=== PATIENT | male | born 1975 | race Caucasian/White ===

== ENCOUNTER 2017-02-20 09:41 | Emergency (ER) | payer BC ==
[2017-02-20 10:07] VITALS: BP 148/84
--- NOTE | 2017-02-20 11:10 | UC ---
Respiratory Complaint HPI - HPI Summary HPI Summary: 41 yo male with cough/wheeze/sore throat x 7 days using rescue inhaler - History of Current Complaint Chief Complaint: UCRespiratory Stated Complaint: COUGH,SORE THROAT,SINUS Time Seen by Provider: 02/20/17 10:57 Hx Obtained From: Patient Onset/Duration: Gradual Onset, Lasting Days Timing: Constant Severity Initially: Mild Severity Currently: Moderate Pain Intensity: 2 Pain Scale Used: 0-10 Numeric Character: Cough: Productive Aggravating Factors: Exertion, Deep Breaths Alleviating Factors: Bronchodilator Associated Signs And Symptoms: Positive: Wheezing, Nasal Congestion, Sinus Discomfort - Allergies/Home Medications Allergies/Adverse Reactions: Allergies Allergy/AdvReac Type Severity Reaction Status Date / Time No Known Allergies Allergy Verified 02/20/17 10:06 PMH/Surg Hx/FS Hx/Imm Hx Previously Healthy: Yes Respiratory History Of: Reports: Asthma - Surgical History Surgical History: None Surgery Procedure, Year, and Place: adenoids and wisdom teeth - Family History Known Family History: Positive: Hypertension, Respiratory Disease - Social History Alcohol Use: Occasionally Substance Use Type: None Smoking Status (MU): Never Smoked Tobacco Review of Systems Constitutional: Negative Skin: Negative Eyes: Negative ENT: Sore Throat, Nasal Discharge Respiratory: Cough Cardiovascular: Negative Gastrointestinal: Negative Genitourinary: Negative Motor: Negative Neurovascular: Negative Musculoskeletal: Negative Neurological: Negative Psychological: Negative All Other Systems Reviewed And Are Negative: Yes Physical Exam Triage Information Reviewed: Yes Appearance: Well-Appearing, No Pain Distress, Well-Nourished Vital Signs: Initial Vital Signs Temp 98.2 F 02/20/17 10:02 Pulse 74 02/20/17 10:02 Resp 16 02/20/17 10:02 BP 148/84 02/20/17 10:02 Pulse Ox 99 02/20/17 10:02 Vital Signs Reviewed: Yes Eyes: Positive: Conjunctiva Clear ENT: Positive: Pharyngeal erythema, Nasal congestion, TM bulging, Other: - UVULAR EDEMA. Negative: Tonsillar swelling, Tonsillar exudate, Trismus, Muffled /hoarse voice Dental Exam: Normal, Other Neck: Positive: Supple, Nontender, No Lymphadenopathy Respiratory: Positive: No respiratory distress, No accessory muscle use, Wheezing Cardiovascular: Positive: RRR, No Murmur Musculoskeletal: Positive: Strength Intact, ROM Intact Neurological: Positive: Alert Psychological Exam: Normal Skin Exam: Normal Diagnostic Evaluation - Laboratory O2 Sat by Pulse Oximetry: 99 - normal/not hypoxic Respiratory Course/Dx - Differential Dx/Diagnosis Provider Diagnoses: BROCNOSPASM. BRONCHITIS. UVULAR EDEMA Discharge - Discharge Plan Condition: Stable Disposition: HOME Prescriptions: Azithromycin TAB* [Zithromax TAB*] 250 mg PO DAILY #6 tab Prednisone [Deltasone] 40 mg PO DAILY #10 tab Patient Education Materials: Acute Bronchitis (ED), Bronchospasm (ED) Forms: *Work Release Referrals: Stef Hernández DO [Primary Care Provider] - 4 Days (if not completely better) Additional Instructions: use your inhaler 2 puffs 4x day for 5 days then as needed
== END 2017-02-20 11:18 | disposition home or self-care (01) ==
LOC: UCCORT 09:41
DX: J20.9 Acute bronchitis, unspecified (principal); K13.79 Other lesions of oral mucosa; J45.909 Unspecified asthma, uncomplicated
CPT/HCPCS: 99212; G0463

== ENCOUNTER 2018-05-04 18:42 | Emergency (ER) | payer BC, OTHER ==
[2018-05-04 18:57] VITALS: BP 137/85
--- NOTE | 2018-05-04 19:16 | UC ---
Knee Pain HPI - HPI Summary HPI Summary: got a deep wound to his R knee at 12 yo but did heal. Over the past year he has been having pain to the front of his knee that is now worsening. There is also swelling. No acute injury. - History of Current Complaint Chief Complaint: UCLowerExtremity Stated Complaint: RT KNEE PAIN Time Seen by Provider: 05/04/18 19:00 Hx Obtained From: Patient Onset/Duration: Gradual Onset Pain Intensity: 7 Aggravating Factor(s): Other - bending Alleviating Factor(s): Nothing Associated Signs And Symptoms: Positive: Swelling. Negative: Redness, Fever, Weakness, Numbness, Tingling Able to Bear Weight: Yes - Risk Factors Septic Arthritis Risk Factor: Negative - Allergies/Home Medications Allergies/Adverse Reactions: Allergies Allergy/AdvReac Type Severity Reaction Status Date / Time No Known Allergies Allergy Verified 05/04/18 18:57 Home Medications: Home Medications diPHENhydraMINE PO* [Benadryl PO 25 MG TAB*] 25 mg PO TID PRN 05/04/18 [History Confirmed 05/04/18] PMH/Surg Hx/FS Hx/Imm Hx - Additional Past Medical History Additional PMH: allergies Respiratory History: Asthma - Surgical History Surgical History: Yes Surgery Procedure, Year, and Place: adenoids and wisdom teeth - Family History Known Family History: Positive: Hypertension, Respiratory Disease - Social History Occupation: Employed Full-time Alcohol Use: Daily Alcohol Amount: 1-2 beers nightly Substance Use Type: None Smoking Status (MU): Never Smoked Tobacco - Immunization History Vaccination Up to Date: Yes Review of Systems Constitutional: Negative Skin: Negative Eyes: Negative ENT: Negative Respiratory: Negative Cardiovascular: Negative Gastrointestinal: Negative Genitourinary: Negative Motor: Negative Neurovascular: Negative Musculoskeletal: Other: - R knee pain Neurological: Negative Psychological: Negative Is Patient Immunocompromised?: No All Other Systems Reviewed And Are Negative: Yes Physical Exam Triage Information Reviewed: Yes Appearance: Well-Appearing Vital Signs: Initial Vital Signs Temp 97.9 F 05/04/18 18:52 Pulse 84 05/04/18 18:52 Resp 19 05/04/18 18:52 BP 137/85 05/04/18 18:52 Pulse Ox 99 05/04/18 18:52 Vital Signs Reviewed: Yes Eyes: Positive: Conjunctiva Clear ENT: Positive: Normal ENT inspection Neck: Positive: Supple, Nontender, No Lymphadenopathy Respiratory: Positive: Lungs clear, Normal breath sounds Cardiovascular: Positive: RRR, No Murmur Abdomen Description: Positive: Nontender, No Organomegaly, Soft Bowel Sounds: Positive: Present Musculoskeletal: Positive: Other: - RLE: hip, ankle and foot are non tender and atraumatic. R anterior knee with scars and mild swelling. Mildly tender over superior scar and medial joint line. No joint laxity. RLE has full s/v/m function. Neurological: Positive: Alert Psychological: Positive: Age Appropriate Behavior Skin Exam: Normal Diagnostics - Radiology No standard instances Radiology Interpretation Completed By: Radiologist - IMPRESSION: Small suprapatellar joint effusion in this otherwise radiographically normal- appearing right knee. Knee Pain Course/Dx - Course Course Of Treatment: NO CONCERN FOR FX OR INFECTION - Differential Dx/Diagnosis Provider Diagnoses: R SUPRAPATELLAR EFFUSION. R KNEE PAIN Discharge - Sign-Out/Discharge Documenting (check all that apply): Patient Departure - Discharge Plan Condition: Stable Disposition: HOME Prescriptions: Naproxen [Naprosyn 500 mg tab] 500 mg PO BID #10 tablet Patient Education Materials: Knee Pain (ED) Referrals: Reese Barillas MD [Medical Doctor] - As Soon As Possible Stef Hernández DO [Primary Care Provider] - If Needed Additional Instructions: WEAR LADARIUS DURING DAY AND REMOVE AT BEDTIME - Billing Disposition and Condition Condition: STABLE Disposition: Home
--- NOTE | 2018-05-04 19:37 | RAD ---
INDICATION: Pain and swelling x1 month COMPARISON: None TECHNIQUE: 4 view radiograph of the right knee. FINDINGS: The visualized bones are well-corticated and properly aligned. The joint spaces are properly maintained. There is a small suprapatellar joint effusion. There is no acute fracture, dislocation or other focal bony abnormality. IMPRESSION: Small suprapatellar joint effusion in this otherwise radiographically normal-appearing right knee. If the patient's symptoms persist, follow-up imaging is recommended.
== END 2018-05-04 20:07 | disposition home or self-care (01) ==
LOC: UCCORT 18:42
DX: M25.561 Pain in right knee (principal); M25.461 Effusion, right knee; J45.909 Unspecified asthma, uncomplicated; Z87.828 Personal history of other (healed) physical injury and trauma
CPT/HCPCS: 99212; G0463

== ENCOUNTER 2018-12-26 21:21 | Emergency (ER) | payer OTHER ==
[2018-12-26 21:44] VITALS: BP 163/80
[2018-12-26] MEDS ORDERED: Clindamycin CAP* 150 MG PO ONE (21:52)
--- NOTE | 2018-12-26 21:59 | UC ---
[facility] Dental HPI - HPI Summary HPI Summary: 43 yo male with sore throat x 1-2 days left lower tooth ache x 3 days swollen left cerv nodes today no f/c no n/v/d no hx DM or heart murmur - History of Current Complaint Chief Complaint: UCDentalProblem Stated Complaint: DENTAL CONCERN Time Seen by Provider: 12/26/18 21:24 Hx Obtained From: Patient Onset/Duration: Gradual Onset Severity: Mild Pain Intensity: 8 Pain Scale Used: 0-10 Numeric Aggravating Factor(s): Heat Alleviating Factor(s): OTC Meds Dental: 1 - tender/carious/gingivitis/no decrete abscess noted - Allergies/Home Medications Allergies/Adverse Reactions: Allergies Allergy/AdvReac Type Severity Reaction Status Date / Time Penicillins Allergy Unknown Rash And Verified 12/26/18 21:37 Itching Home Medications: Home Medications Fluticasone-Salmeterol 250-50* [Advair Diskus 250-50*] 1 puff INH BID 12/26/18 [ History Confirmed 12/26/18] Ibuprofen TAB* [Advil TAB*] 600 mg PO Q6H PRN 12/26/18 [History Confirmed ] PMH/Surg Hx/FS Hx/Imm Hx Previously Healthy: Yes - Surgical History Surgical History: Yes Surgery Procedure, Year, and Place: adenoids and wisdom teeth - Family History Known Family History: Positive: Hypertension, Respiratory Disease - Social History Alcohol Use: Daily Alcohol Amount: 1-2 beers nightly Substance Use Type: None Smoking Status (MU): Never Smoked Tobacco - Immunization History Vaccination Up to Date: Yes Review of Systems All Other Systems Reviewed And Are Negative: Yes Constitutional: Positive: Negative Skin: Positive: Negative Eyes: Positive: Negative ENT: Positive: Dental Pain, Sore Throat Respiratory: Positive: Negative Cardiovascular: Positive: Negative Gastrointestinal: Positive: Negative Genitourinary: Positive: Negative, Dysuria Motor: Positive: Negative Neurovascular: Positive: Negative Musculoskeletal: Positive: Negative Neurological: Positive: Negative Psychological: Positive: Negative Physical Exam Triage Information Reviewed: Yes Appearance: Well-Appearing, No Pain Distress, Well-Nourished Vital Signs: Initial Vital Signs Temp 98.3 F 12/26/18 21:40 Pulse 97 12/26/18 21:40 Resp 17 12/26/18 21:40 BP 163/80 12/26/18 21:40 Pulse Ox 99 12/26/18 21:40 Vital Signs Reviewed: Yes Eyes: Positive: Conjunctiva Clear ENT: Positive: Hearing grossly normal. Negative: Nasal congestion, Nasal drainage, Tonsillar swelling, Tonsillar exudate, Trismus, Muffled voice, Hoarse voice Respiratory: Positive: Lungs clear, Normal breath sounds, No respiratory distress, No accessory muscle use Cardiovascular: Positive: RRR, No Murmur Musculoskeletal: Positive: ROM Intact, No Edema Neurological: Positive: Alert Psychological Exam: Normal Skin Exam: Normal Dental Complaint Course/Dx - Course Course Of Treatment: strep (-) - Differential Dx/Diagnosis Provider Diagnosis: Dental abscess, Cervical lymphadenopathy, Elevated BP without diagnosis of hypertension Discharge - Sign-Out/Discharge Documenting (check all that apply): Patient Departure All imaging exams completed and their final reports reviewed: No Studies - Discharge Plan Condition: Stable Disposition: HOME Prescriptions: Clindamycin Cap(NF) [Clindamycin Cap 300 mg Cap(NF)] 300 mg PO QID #28 cap Patient Education Materials: Dental Abscess (ED) Referrals: Stef Hernández DO [Primary Care Provider] - 2 Weeks (need BP followed) Additional Instructions: recheck for worsening symptoms (ER) recheck if not improving in a few days you need to get in to see a dentist first available appt - Billing Disposition and Condition Condition: STABLE Disposition: Home
== END 2018-12-26 22:31 | disposition home or self-care (01) ==
LOC: UCCORT 21:21
DX: K04.7 Periapical abscess without sinus (principal); R59.0 Localized enlarged lymph nodes; R03.0 Elevated blood-pressure reading, without diagnosis of hypertension; J02.9 Acute pharyngitis, unspecified; Z88.0 Allergy status to penicillin
CPT/HCPCS: 87651; 99212; A9270-GY; G0463